=== PATIENT | female | born 1985 ===

== ENCOUNTER 2024-09-29 06:25 | Day surgery (SDC) | payer OTHER ==
[2024-09-29] MEDS ORDERED: CEFAZOLIN SODIUM 1,000 MG VIAL ONE ×2 (07:40→07:56)
[2024-09-29] MEDS ORDERED: GENTAMICIN SULFATE 40 MG/ML VIAL ONE (07:55)
[2024-09-29] MEDS ORDERED: LIDOCAINE HCL 1%/EPINEPHRINE 20ML VIAL IJ ONE (07:55)
[2024-09-29] MEDS ORDERED: LIDOCAINE HCL 1% 20 ML VIAL IJ ONE (07:56)
[2024-09-29] MEDS ORDERED: POVIDONE-IODINE 118 ML BOTT TOP ONE (08:21)
[2024-09-29] MEDS ORDERED: TRAM1TAB98 PO (09:28)
[2024-09-29] MEDS ORDERED: MACROBID 100 M100 MG PO (09:28)
[2024-09-29] MEDS ORDERED: ONDANSETRON HCL 2 MG/ML VIAL IV ONE (09:35)
[2024-09-29] MEDS ORDERED: ONDANSETRON HCL 2 MG/ML VIAL ONE (09:41)
== END 2024-09-29 11:35 | disposition home or self-care (01) ==
LOC: CIR.AMB 06:25
PROVIDERS: ATTEND Obstetrics & Gynecology Gynecology
DX: N39.3 Stress incontinence (female) (male) (principal)
CPT/HCPCS: 57288; C1771